=== PATIENT | male | born 1940 | race Caucasian/White ===

== ENCOUNTER → 2016-05-28 | Outpatient (CLI) | payer OTHER, MEDICARE | PROVIDERS: ATTEND Psychiatry & Neurology Neurology | DX: R47.02 Dysphasia (principal) | CPT/HCPCS: 74230; G8996; G8997; G8998 ==

== ENCOUNTER 2017-04-17 17:58 | Emergency (ER) | payer OTHER, MEDICARE ==
--- NOTE | 2017-04-17 18:23 | EDPHY ---
H & P Time Seen by Provider: 04/17/17 18:13 HPI/ROS: CHIEF COMPLAINT: Scalp laceration HISTORY OF PRESENT ILLNESS: Patient is a 77-year-old man not anticoagulated who comes to the emergency department for scalp laceration. He was sitting down at the table for dinner and missed the chair and hit his head on the bookcase. He denies loss of consciousness. He denies syncope. He denies chest pain or palpitations. He denies headache or neck pain. No weakness or numbness. REVIEW OF SYSTEMS: Constitutional: denies: chills, fever, recent illness, recent injury EENTM: denies: blurred vision, double vision, nose congestion Respiratory: denies: cough, shortness of breath Cardiac: denies: chest pain, irregular heart rate, lightheadedness, palpitations Gastrointestinal/Abdominal: denies: abdominal pain, diarrhea, nausea, vomiting, blood streaked stools Genitourinary: denies: dysuria, frequency, hematuria, pain Musculoskeletal: denies: joint pain, muscle pain Skin: See HPI Neurological: denies: headache, numbness, paresthesia, tingling, dizziness, weakness Hematologic/Lymphatic: denies: blood clots, easy bleeding, easy bruising Immunologic/allergic: denies: HIV/AIDS, transplant EXAM: GENERAL: Well-appearing, well-nourished and in no acute distress. HEAD: No crepitus or deformity. EYES: Pupils equal round and reactive to light, extraocular movements intact, sclera anicteric, conjunctiva are normal. ENT: TMs normal, nares patent, oropharynx clear without exudates. Moist mucous membranes. NECK: Normal range of motion, supple without lymphadenopathy or JVD. LUNGS: Breath sounds clear to auscultation bilaterally and equal. No wheezes rales or rhonchi. HEART: Regular rate and rhythm without murmurs, rubs or gallops. ABDOMEN: Soft, nontender, normoactive bowel sounds. No guarding, no rebound. No masses appreciated. BACK: No CVA tenderness, no spinal tenderness, step-offs or deformities EXTREMITIES: Normal range of motion, no pitting or edema. No clubbing or cyanosis. NEUROLOGICAL: Cranial nerves II through XII grossly intact. Normal speech, normal gait. 5/5 strength, normal movement in all extremities, normal sensation PSYCH: Normal mood, normal affect. SKIN: 4 cm laceration to scalp. 3 mm deep. Linear. No crepitus. Source: Patient Exam Limitations: No limitations - Medical/Surgical History Hx Asthma: No Hx Chronic Respiratory Disease: No Hx Diabetes: No Hx Cardiac Disease: No Hx Renal Disease: No Hx Cirrhosis: No Hx Alcoholism: No Hx HIV/AIDS: No Other PMH: Parkinsons, BPH, Insomnia - Family History Significant Family History: Hypertension - Social History Alcohol Use: Sober Drug Use: None Constitutional: Initial Vital Signs Temperature (C) 36.9 C 04/17/17 18:22 Heart Rate 70 04/17/17 18:22 Respiratory Rate 16 04/17/17 18:22 Blood Pressure 148/74 H 04/17/17 18:22 O2 Sat (%) 93 04/17/17 18:22 O2 Delivery Mode Room Air Allergies/Adverse Reactions: Penicillins Allergy (Verified 04/17/17 18:25) Medical Decision Making - Diagnostics Imaging: Discussed imaging studies w/ call worker person Radiologist Procedures: Procedure: Laceration repair. Verbal consent was obtained from the patient. The 4 cm scalp laceration was anesthetized with 1% lidocaine with epi and bicarbonate locally infiltrated. The wound was irrigated copiously according to protocol, draped and explored to its base. It was approximately 1/2 cm deep. There were no deep structures involved. No tendon, nerve, or vascular injury was identified when explored through full range of motion. No foreign body was identified. The wound was repaired with 8 heather. The wound repair was simple. The procedure was performed by myself. A dressing was then placed with sterile gauze and bacitracin. ED Course/Re-evaluation: Patient tolerated the procedure well. He is very eager to go home. He declines further workup or testing. He has small abrasion on his left cheek which she denies is causing him pain or concern. His daughter is here with him and states that he is acting at baseline. Head CT ordered in this adult patient for trauma for the following indication: age greater than 65 years old Differential Diagnosis: Partial list of the Differential diagnosis considered include but were not limited to; laceration, head injury and although unlikely based on the history and physical exam, I also considered fracture, intracranial injury. I discussed these differential diagnoses and the plan with the patient as well as the usual and expected course. The patient understands that the diagnosis is provisional and that in medicine we are not always correct and that further workup is often warranted. Usual and customary warnings were given. All of the patient's questions were answered. The patient was instructed to return to the emergency department should the symptoms at all worsen or return, otherwise to followup with the physician as we discussed. Departure - Departure Disposition: Home, Routine, Self-Care Clinical Impression: Laceration Condition: Fair Instructions: Staple Care (ED) Additional Instructions: Keep the wound clean, use antibiotic creams twice daily, return in 10 days for staple removal. May wash gently with soap and water. Referrals: Patient,NotPresent [Unknown] - As per Instructions
[2017-04-17 18:25] VITALS: PULSE 70
[2017-04-17 20:02] VITALS: BP 146/85; RESP 18; TEMP 98.6; O2SAT 95
== END 2017-04-17 20:01 | disposition home or self-care (01) ==
LOC: EDBD → EDUNIT#
PROC: 0HQ0XZZ Repair Scalp Skin, External Approach (ICD-10-PCS; principal; 2017-04-17)
DX: S01.01XA Laceration without foreign body of scalp, initial encounter (principal); G20 Parkinson's disease; W22.8XXA Striking against or struck by other objects, initial encounter

== ENCOUNTER 2017-07-01 17:43 | Emergency (ER) | payer OTHER, MEDICARE ==
[2017-07-01 17:48] VITALS: RESP 18; TEMP 98.1
[2017-07-01 17:49] VITALS: O2SAT 92
--- NOTE | 2017-07-01 18:04 | EDPHY ---
HPI/HX/ROS/PE/MDM Narrative: CHIEF COMPLAINT: Choking episode HPI: This 77 year old male with history of Parkinson's disease arrives via EMS from [facility] following an episode of choking followed by a brief period of unresponsiveness. He was in the dining room at his assisted living facility eating corned beef and began choking. Staff who witnessed this performed abdominal thrusts, and some food came out of the patient's mouth. Shortly following this, he fell to the ground unresponsive and vomited. CPR was performed briefly, and more food came from the patient's mouth. He regained consciousness quickly. EMS transported him for further evaluation including possible sternal or rib trauma from CPR. The patient currently feels well. He denies any pain or difficulty breathing. He denies history of heart problems. He has no further complaints. REVIEW OF SYSTEMS: Aside from elements discussed in the HPI, a comprehensive 10-point review of systems was reviewed and is negative. PMH: Parkinson's disease with associated dementia SOCIAL HISTORY: Daughter at bedside. Lives at [facility]. Retired. PHYSICAL EXAM: General:Patient is alert, in no acute distress. ENT:Eyes are normal to inspection. ENT inspection normal. Neck: Normal inspection. Full range of motion. Respiratory:No respiratory distress. Breath sounds normal bilaterally. Cardiovascular: Regular rate and rhythm. Strong peripheral pulses. Normal cap refill. Abdomen:The abdomen is nontender to palpation. There are no peritoneal signs. There are normal bowel sounds. Back: Normal to inspection. No tenderness to palpation. Skin: Red nohemi on sternum, likely secondary to CPR. Normal color. No rash. Warm and dry. Extremities: Normal appearance. Full range of motion. Neuro: Oriented x3. Normal motor function. Normal sensory function. ED Course: 77 y/o male presents following a choking episode and brief period of unresponsiveness. He currently feels well and has no complaints. Plan for EKG, chest x-ray, labs including CBC, chemistries, troponin. EKG was ordered and interpreted by myself. Please see [facility] system for official reading. Sinus rhythm, no evidence of ischemia. No acute abnormalities on CXR. Reviewed laboratory studies. Troponin negative. Patient continues to feel well. Plan to discharge home in good condition. Follow up and return precautions discussed. He is comfortable with this plan. MDM: This patient presents after what sounds like choking episode with possible brief respiratory arrest from which he spontaneously recovered. On exam in the ED he is symptom free, vitals are normal, exam shows no signs of significant trauma, and ECG/troponin are negative for signs of ischemia. No evidence of aspiration on CXR. I offered the patient admission to the hospital for further observation but he declines. - Data Points Imaging Results: Imaging Impressions Chest X-Ray 07/01/17 18:03 Impression: No acute abnormality. Elevated left hemidiaphragm with atelectasis left lower lung.. Imaging: I viewed and interpreted images myself Laboratory Results: Laboratory Results 07/01/17 17:48 07/01/17 17:48 07/01/17 07/01/17 17:48 17:48 WBC 8.64 10^3/uL 10^3/uL (3.80-9.50) RBC 4.93 10^6/uL 10^6/uL (4.40-6.38) Hgb 15.4 g/dL g/dL (13.7-17.5) Hct 43.9 % % (40.0-51.0) MCV 89.0 fL fL (81.5-99.8) MCH 31.2 pg pg (27.9-34.1) MCHC 35.1 g/dL g/dL (32.4-36.7) RDW 13.1 % % (11.5-15.2) Plt Count 195 10^3/uL 10^3/uL (150-400) MPV 10.5 fL fL (8.7-11.7) Neut % (Auto) Not Reported Lymph % (Auto) Not Reported [place] % (Auto) Not Reported Eos % (Auto) Not Reported Baso % (Auto) Not Reported Nucleat RBC Rel Count 0.0 % % (0.0-0.2) Absolute Neuts (auto) Not Reported Absolute Lymphs (auto) Not Reported Absolute Monos (auto) Not Reported Absolute Eos (auto) Not Reported Absolute Basos (auto) Not Reported Absolute Nucleated RBC 0.00 10^3/uL 10^3/uL (0-0.01) Immature Gran % Not Reported Seg Neutrophils % 46 % % Band Neutrophils % 5 % % Lymphocytes % 39 % % Monocytes % 6 % % Eosinophils % 2 % % Metamyelocytes % 2 % % Immature Gran # Not Reported Absolute Seg Neuts 3.97 10^/uL 10^/uL (1.70-6.50) Absolute Band Neuts 0.43 10^3/uL 10^3/uL (0.00-0.70) Absolute Lymphocytes 3.37 10^3/uL H 10^3/uL (1.00-3.00) Absolute Monocytes 0.52 10^3/uL 10^3/uL (0.30-0.80) Absolute Eosinophils 0.17 10^3/uL 10^3/uL (0.03-0.40) Absolute Metamyelocyte 0.17 10^3/mL H 10^3/mL (0.00-0.00) Platelet Estimate ADEQUATE (ADEQ) Polychromasia 1+ H Sodium 143 mEq/L mEq/L (135-145) Potassium 4.3 mEq/L mEq/L (3.5-5.2) Chloride 104 mEq/L mEq/L (97-110) Carbon Dioxide 23 mEq/l mEq/l (22-31) Anion Gap 16 mEq/L mEq/L (8-16) BUN 18 mg/dL mg/dL (7-23) Creatinine 0.9 mg/dL mg/dL (0.7-1.3) Estimated GFR > 60 Glucose 132 mg/dL H mg/dL (70-100) Calcium 8.9 mg/dL mg/dL (8.5-10.4) Troponin I < 0.012 ng/mL ng/mL (0.000-0.034) General Time Seen by Provider: 07/01/17 17:53 Initial Vital Signs: Initial Vital Signs Temperature (C) 36.7 C 07/01/17 17:47 Heart Rate 71 07/01/17 17:47 Respiratory Rate 18 07/01/17 17:47 Blood Pressure 130/71 H 07/01/17 17:47 O2 Sat (%) 87 L 07/01/17 17:47 O2 Delivery Mode Room Air O2 (L/minute) 2 Allergies/Adverse Reactions: Penicillins Allergy (Verified 04/17/17 18:25) Departure - Departure Disposition: Home, Routine, Self-Care Clinical Impression: Choking episode Condition: Good Instructions: Additional Information Additional Instructions: 1. Follow up with your primary care provider in 2-3 days. 2. Return to the emergency department for chest pain, difficulty breathing, or further concerns. Referrals: Geovani Boyle MD [Primary Care Provider] - As per Instructions Report Scribed for: Fady Mckeon Report Scribed by: Nolvia Jean Baptiste Date of Report: 07/01/17 Time of Report: 18:16 Physician Review and Approval Statement: Portions of this note were transcribed by an ED scribe. I personally performed the history, physical exam, and medical decision making; and confirm the accuracy of the information in the transcribed note.
[2017-07-01 18:10] LABS: PLATELET COUNT 195 10^3/uL (150-400)
--- NOTE | 2017-07-01 18:14 | CPEKG ---
Heart Rate: 69 RR Interval: 870 P-R Interval: 148 QRSD Interval: 100 QT Interval: 400 QTC Interval: 429 P [place]: 49 QRS [place]: 18 T Wave [place]: 26 EKG Severity - NORMAL ECG - EKG Impression: SINUS RHYTHM Electronically Signed By: Deedee Puckett 01-Jul-2017 20:36:10
[2017-07-01 19:29] VITALS: BP 127/73; PULSE 80
== END 2017-07-01 19:28 | disposition home or self-care (01) ==
LOC: EDUNIT#
DX: R09.89 Other specified symptoms and signs involving the circulatory and respiratory systems (principal); G20 Parkinson's disease

== ENCOUNTER 2018-01-06 11:46 | Emergency (ER) | payer OTHER, MEDICARE ==
--- NOTE | 2018-01-06 12:28 | EDPHY ---
H & P Time Seen by Provider: 01/06/18 12:02 HPI/ROS: CHIEF COMPLAINT: Scalp laceration HISTORY OF PRESENT ILLNESS: Patient fell at around midnight and then again at 3 :00 a.m.. He has history of multiple falls and recurrent falls, these are similar, syncope not suspected. Hospice is involved for symptom care in palliative management. Patient has been eating less. He had an episode of choking on his food within the past 24 hr, has a little bit of a cough. Does not have shortness of breath or fever. He does not complain of a headache and his mentation is normal now. He is bleeding from a scalp laceration. REVIEW OF SYSTEMS: Eye: no change in vision, although family notes that over the last 3 months his right eyelid has become slightly more droopy. ENT: no sore throat Cardiac: no chest pain or syncope Pulmonary: no cough or SOB Abdomen: No vomiting or abdominal pain Musculoskeletal: no back pain or neck pain Skin: Occipital scalp laceration. Neuro: no headache Constitutional: no fever : no urinary symptoms A comprehensive 10 point review of systems is otherwise negative aside from elements mentioned in the history of present illness. PAST MEDICAL HISTORY: Includes Parkinson's, kidney disease, dementia, BPH Social history: Here with hospice nurse Esme, and his daughter General Appearance: Alert and conversant, cooperative. Eyes: No scleral icterus. Pupils equal 2 mm extraocular motion intact, pupils 2 mm. ENT, Mouth: Normal mucous membranes. No hemotympanum. Respiratory: Normal respiratory effort, breath sounds equal, lungs are clear to auscultation. Cardiovascular: Regular rate and rhythm. Gastrointestinal: Abdomen is soft and non tender. Neurological: Alert, face symmetric, normal motor and sensory in extremities. He can open both eyes with effort, but at rest his left eyelid droop slightly more than the right as compared to what they family describes as typical. Follows commands. Skin: 3 cm occipital scalp laceration. Musculoskeletal: No midline spinal tenderness. No extremity or clavicular tenderness to palpation. Psychiatric: Not agitated. Emergency Department course/MDM: Cervical spine cleared clinically. He had a bit of a cough yesterday or today with eating, is on mechanical soft diet. Does not appear to have pneumonia or aspiration clinically on evaluation here at this time. Lungs are clear, O2 sat normal, not febrile. Laceration cleaned and repaired. We discussed CT scanning but it is the opinion of the patient and family that he is not currently a neurosurgical candidate even if significant intracranial injury were to be found. We will not do CT scanning today, everyone is in agreement. Patient and family understand that this could result in delay or failure to diagnose intracranial hemorrhage or subdural or epidural, with attendant morbidity or mortality. I think their decision is reasonable. 1250: stapled, stable for DC. Smoking Status: Never smoked Constitutional: Initial Vital Signs Temperature (C) 36.7 C 01/06/18 11:47 Heart Rate 84 01/06/18 11:47 Respiratory Rate 18 01/06/18 11:47 Blood Pressure 116/66 01/06/18 11:47 O2 Sat (%) 96 01/06/18 11:47 O2 Delivery Mode Room Air Allergies/Adverse Reactions: Penicillins Allergy (Unknown, Verified 01/06/18 11:46) Home Medications: Medication Instructions Recorded Aspirin EC [Aspirin EC 81 mg (*)] 81 mg PO DAILY 01/06/18 Carbidopa/Levodopa 1 each PO 01/06/18 [Carbidopa-Levodopa 25-100 Tab] Donepezil HCl [Aricept] 10 mg PO 01/06/18 Escitalopram Oxalate [Lexapro] 10 mg PO 01/06/18 QUEtiapine FUMARATE [Seroquel 25 25 mg PO DAILY 01/06/18 mg (*)] Tamsulosin HCl [Flomax 0.4 MG (*)] 0.4 mg PO 01/06/18 traZODONE 50MG (*) 01/06/18 Medical Decision Making Procedures: Procedure: Laceration repair. Verbal consent was obtained from the patient. The 3 cm laceration on the scalp was anesthetized using 0.5% bupivacaine with epinephrine. The wound was irrigated with standard emergency department protocol, draped and explored. There were no deep structures involved. No foreign body found. The wound was repaired with heather. The wound repair was simple. Excellent hemostasis was obtained. Wound care instructions were discussed and the patient was warned regarding scarring. The procedure was performed by myself. Departure - Departure Disposition: Home, Routine, Self-Care Clinical Impression: Scalp laceration Qualifiers: Encounter type: initial encounter Qualified Code(s): S01.01XA - Laceration without foreign body of scalp, initial encounter Condition: Good Instructions: Laceration (ED), Head Injury (ED) Additional Instructions: Wound Care Follow-Up: Antibiotic ointment to wound once a day until sutures removed. Keep dry for first 24 hours then shower or washing hair OK. Removal of sutures in 10 days. Suture removal is complimentary in uncomplicated cases. Infection or abnormal findings would require reevaluation by the MD. In that case, you may be billed. Referrals: Geovani Boyle MD [Primary Care Provider] - As per Instructions
[2018-01-06 13:17] VITALS: BP 127/59
== END 2018-01-06 13:17 | disposition home or self-care (01) ==
PROC: 0HQ0XZZ Repair Scalp Skin, External Approach (ICD-10-PCS; principal; 2018-01-06)
DX: S01.01XA Laceration without foreign body of scalp, initial encounter (principal); W19.XXXA Unspecified fall, initial encounter; Y99.8 Other external cause status; G20 Parkinson's disease; F03.90 Unspecified dementia, unspecified severity, without behavioral disturbance, psychotic disturbance, mood disturbance, and anxiety; Z91.81 History of falling